=== PATIENT | female | born 2000 | race African-American/Black ===

== ENCOUNTER 2022-06-07 03:17 | Inpatient (IN) | payer MEDICAID, OTHER ==
[2022-06-07 03:48] VITALS: BMI 38.2
[2022-06-07] MEDS ORDERED: Lactated Ringer's 1,000 ML IV SCH (07:00)
[2022-06-07] MEDS ORDERED: Butorphanol Tartrate 1 MG/ML VIAL SLOW IVP PRN (07:00)
[2022-06-07] MEDS ORDERED: Ondansetron PF 4 MG/2 ML Vial IVP PRN ×2 (07:00→16:41)
[2022-06-07] MEDS ORDERED: hydrALAZINE 20 MG/ML VIAL SLOW IVP PRN ×2 (07:00→16:41)
[2022-06-07] MEDS ORDERED: Promethazine HCl 25 MG/ML VIAL IM PRN ×2 (07:00→16:41)
[2022-06-07] MEDS ORDERED: Acetaminophen 500 MG TAB PO PRN (07:00)
[2022-06-07] MEDS ORDERED: Fentanyl 2 mcg/Bup 0.1% Cadd 100 ML ONE (07:29)
[2022-06-07 07:31] LABS: Mean Corpuscular HGB CONC 34.5 g/dL (32.0-36.0); Mean Corpuscular Hemoglobin 28.4 pg (27.0-33.0); Mean Corpuscular Volume 82.3 fl (81.6-98.3); Mean Platelet Volume 10.1 fl (7.4-10.4); Platelet Count 245 10x3/uL (150-450); RBC Distribution Width 14.3 % (11.5-14.5); Red Blood Cell (RBC) Count 4.23 10x6/uL (3.90-5.03); White Blood Cell (WBC) Count 7.9 10x3/uL (3.5-10.5)
[2022-06-07 08:10] LABS: HBSAg Index 0.15 S/CO (0-0.99); Hep B Surf Ag Non-Reactive S/CO (NonReactive)
[2022-06-07 08:11] LABS: Syphilis Antibody Nonreactive (Nonreactive); Syphilis Antibody Index 0.02 S/CO (<1.00 Non-Reactive)
[2022-06-07] MEDS ORDERED: NS w/ Oxytocin 30 units 500 ML ONE (08:37)
[2022-06-07] MEDS ORDERED: Ondansetron PF 4 MG/2 ML Vial ONE (10:46)
[2022-06-07] MEDS ORDERED: diphenhydrAMINE 25 MG CAP PO PRN (16:41)
[2022-06-07] MEDS ORDERED: NS w/ Oxytocin 30 units 500 ML IV SCH (16:41)
[2022-06-07] MEDS ORDERED: Lanolin Ointment 7 GM TUBE TOP PRN (16:41)
[2022-06-07] MEDS ORDERED: Zolpidem Tartrate 5 MG TAB PO PRN (16:41)
[2022-06-07] MEDS ORDERED: Milk Of Magnesia 30 ML UDCUP PO PRN (16:41)
[2022-06-07] MEDS ORDERED: Misoprostol 200 MCG TAB VAG PRN (16:41)
[2022-06-07] MEDS ORDERED: Boostrix 0.5 ML (Tdap) VIAL (>/=7 yrs of age) IM ONE (16:41)
[2022-06-07] MEDS ORDERED: Benzocaine-Menthol 82.5 ML CAN TOP PRN (16:41)
[2022-06-07] MEDS ORDERED: Preparation H Ointment 28 GM TUBE PR PRN (16:41)
[2022-06-07] MEDS ORDERED: Measles/Mumps/Rubella 10 MCG/0.5 ML VIAL SC ONE (16:41)
[2022-06-07] MEDS ORDERED: Bisacodyl 10 MG SUPP PR PRN (16:41)
[2022-06-07] MEDS: Ferrous Sulfate 325 MG TAB PO SCH (19:28)
[2022-06-07] MEDS: Docusate 100 MG CAP PO SCH (21:16)
[2022-06-07] MEDS: Ibuprofen 800 MG TAB PO SCH (21:17)
[2022-06-08 05:15] LABS: Mean Corpuscular Hemoglobin 27.8 pg (27.0-33.0); Mean Corpuscular Volume 84.2 fl (81.6-98.3); Mean Platelet Volume 9.9 fl (7.4-10.4); Platelet Count 210 10x3/uL (150-450); RBC Distribution Width 14.5 % (11.5-14.5); White Blood Cell (WBC) Count 11.1 10x3/uL (3.5-10.5)
[2022-06-08] MEDS: Ibuprofen 800 MG TAB PO SCH ×3 (05:58→21:26)
[2022-06-08] MEDS: HYDROcodone/Acetaminophen 5/325 mg Tablet PO PRN (07:02)
[2022-06-08] MEDS: Ferrous Sulfate 325 MG TAB PO SCH ×2 (07:22→16:26)
[2022-06-08] MEDS: Prenatal Vitamin 1 TAB PO SCH (08:26)
[2022-06-08] MEDS: Docusate 100 MG CAP PO SCH ×2 (08:26→21:26)
[2022-06-09] MEDS: Ibuprofen 800 MG TAB PO SCH (05:51)
[2022-06-09 07:41] VITALS: BP 108/79; TEMP 98
[2022-06-09] MEDS: Ferrous Sulfate 325 MG TAB PO SCH (09:03)
[2022-06-09] MEDS: Docusate 100 MG CAP PO SCH (09:04)
[2022-06-09] MEDS: Prenatal Vitamin 1 TAB PO SCH (09:04)
[2022-06-09] MEDS: HYDROcodone/Acetaminophen 5/325 mg Tablet PO PRN (09:07)
== END 2022-06-09 12:45 | disposition home or self-care (01) | DRG 807 ==
LOC: CSHLD/OP 03:17 → CSHLD 06:59 → CSHPP 17:36
PROVIDERS: ADMIT Obstetrics & Gynecology; ATTEND Obstetrics & Gynecology
PROC: 10E0XZZ Delivery of Products of Conception, External Approach (ICD-10-PCS; principal; 2022-06-07)
DX: O98.52 Other viral diseases complicating childbirth (principal); Z37.0 Single live birth; O70.1 Second degree perineal laceration during delivery; Z3A.38 38 weeks gestation of pregnancy; Z88.0 Allergy status to penicillin; Z88.1 Allergy status to other antibiotic agents; B00.9 Herpesviral infection, unspecified
CPT/HCPCS: 36415; 51702; 85027; 86780; 86850; 86900; 86901; 87340; 99285; J2405

== ENCOUNTER 2023-07-17 21:51 | Emergency (ER) | payer OTHER | END 2023-07-17 23:10 | disposition home or self-care (01) | LOC: CSHERS 21:51 | DX: M54.2 Cervicalgia (principal); M54.50 Low back pain, unspecified; Z55.6 Problems related to health literacy; V89.2XXA Person injured in unspecified motor-vehicle accident, traffic, initial encounter | CPT/HCPCS: 99283 ==

== ENCOUNTER 2025-04-24 12:47 | Day surgery (SDC) | payer BC, OTHER ==
[2025-04-24 14:52] VITALS: BMI 41.1
[2025-04-24] MEDS ORDERED: hydrALAZINE 20 MG/ML VIAL SLOW IVP PRN (15:05)
== END 2025-04-24 18:04 | disposition home or self-care (01) ==
LOC: CSHERS 12:47 → CSHLD/OP 14:29
PROVIDERS: ATTEND Obstetrics & Gynecology
DX: Z04.1 Encounter for examination and observation following transport accident (principal); O12.03 Gestational edema, third trimester; Z3A.29 29 weeks gestation of pregnancy; Z88.0 Allergy status to penicillin; Z79.899 Other long term (current) drug therapy
CPT/HCPCS: 36415; 72125; 76815; 86850; 86900; 86901; 99283